=== PATIENT | female | born 1980 | race Two or more races ===

== ENCOUNTER 2016-08-14 16:58 | Emergency (ER) | payer BC, MEDICAID ==
[~2016-08-14] VITALS: Ht 175.3 cm; Wt 70.0 kg
[2016-08-14 18:40] VITALS: BP 116/65
[2016-08-14] MEDS ORDERED: KETOROLAC TROMETH 60MG/2ML VIAL IM ONE (20:00)
== END 2016-08-14 20:55 | disposition home or self-care (01) ==
LOC: ER 17:00
DX: S16.1XXA Strain of muscle, fascia and tendon at neck level, initial encounter (principal); Z88.6 Allergy status to analgesic agent; Z88.8 Allergy status to other drugs, medicaments and biological substances; V49.49XA Driver injured in collision with other motor vehicles in traffic accident, initial encounter; Y93.89 Activity, other specified; Y99.8 Other external cause status; Y92.410 Unspecified street and highway as the place of occurrence of the external cause
CPT/HCPCS: 72040; 99284; J1885